=== PATIENT | female | born 1970 | race American Indian/Alaskan Native ===

== ENCOUNTER 2021-01-21 12:27 | Outpatient (CLI) | payer BC ==
--- NOTE | 2021-01-21 15:32 | Ultrasound Report ---
ULTRASOUND-GUIDED CORE NEEDLE BIOPSY Left BREAST WITH CLIP PLACEMENT INDICATION: Left breast lesion at the 6:00 position noted on outside imaging. FINDINGS: Informed consent was obtained. The poorly defined area in the left breast at the 6:00 position, 9 cm from the nipple, was identified. In real-time imaging this does not appear consistent with a discrete mass. Slight shadowing hypoechoic appearance is noted in this region. The overlying skin was cleanse d with chloro prep and local anesthesia was obtained with a 1% lidocaine solution. Under ultrasound g uidance a 14-gauge spring loaded core biopsy needle was advanced to the lesion. A total of 5 core kaitlin ples were obtained. A U-shaped biopsy marker was placed to tiffanie the site of the biopsy. Specimen samp les were placed in formalin and sent to pathology for analysis. Patient tolerated the procedure well and no immediate complications were identified. A post procedure mammogram demonstrates accurate placement of the biopsy marker. IMPRESSION: Technically successful ultrasound-guided core biopsy of left breast lesion at the 6:00 position with placement of a U-shaped biopsy marker. An addendum will be added to this report once pathology results are available. Signer Name: Jan Louise MD Signed: 01/21/2021 3:28 PM Workstation Name: [id number]
--- NOTE | 2021-01-21 15:34 | Mammography Report ---
LEFT DIAGNOSTIC MAMMOGRAM INDICATION: Left breast biopsy at the 6:00 position. COMPARISON: Outside imaging 02/28/2020 and 02/02/2020. FINDINGS: Left breast CC and LM projection mammograms were obtained. These document a U-shaped biopsy marker at the 6:00 position which was placed from recent ultrasound-guided core biopsy. IMPRESSION: Left breast mammographic images documenting location of biopsy marker in the left breast at the 6:00 position, site of recent ultrasound guided core biopsy. BI-RADS Category 4: Suspicious for Malignancy. Signer Name: Jan Louise MD Signed: 01/21/2021 3:30 PM Workstation Name: [id number]
== END 2021-01-21 12:28 | disposition home or self-care (01) ==
LOC: SPVWC 12:27
PROVIDERS: ATTEND Internal Medicine
DX: N63.25 Unspecified lump in the left breast, overlapping quadrants (principal); N60.32 Fibrosclerosis of left breast
CPT/HCPCS: 88305